=== PATIENT | male | born 1975 | race Caucasian/White ===

== ENCOUNTER 2021-09-16 20:25 | Inpatient (IN) | payer OTHER, SELFPAY ==
[2021-09-16 21:54] LABS: #Monocytes 0.4 10x3/uL (0.0-1.1); #Neutrophils 4.5 10x3/uL (1.5-8.4); %Basophils 0.3 % (0.0-2.0); %Eosinophils 0.3 % (0.0-6.0); %Lymphocytes 15.5 % (18.0-47.0); %Monocytes 6.8 % (0.0-10.0); %Neutrophils 76.9 % (40.0-75.0); Hemoglobin 14.6 g/dL (13.5-17.5); Mean Corpuscular HGB CONC 33.6 g/dL (32.0-36.0); Mean Corpuscular Hemoglobin 30.2 pg (27.0-33.0); Mean Corpuscular Volume 89.9 fl (81.2-95.1); Mean Platelet Volume 9.4 fl (7.4-10.4); Platelet Count 212 10x3/uL (150-450); RBC Distribution Width 13.7 % (11.5-14.5); Red Blood Cell (RBC) Count 4.84 10x6/uL (4.32-5.72); White Blood Cell (WBC) Count 5.9 10x3/uL (3.5-10.5)
[2021-09-16 21:55] LABS: ALT (SGPT) 48 U/L (8-55); AST (SGOT) 33 U/L (5-34); Albumin 4.3 g/dL (3.5-5.0); Alkaline Phosphatase 67 U/L (40-110); Anion Gap 17 mmol/L (10-20); BUN (Urea Nitrogen) 11 mg/dL (8.9-20.6); Bilirubin, Total 0.3 mg/dL (0.2-1.2); Calc. Creatinine Clearance 0 mL/min (70-130); Calcium 8.9 mg/dL (7.8-10.44); Carbon Dioxide 23 mmol/L (22-29); Chloride 102 mmol/L (98-107); Globulin 3.3 g/dL (2.4-3.5); Glucose 89 mg/dL (70-105); Potassium 3.8 mmol/L (3.5-5.1); Protein, Total 7.6 g/dL (6.0-8.3); Sodium 138 mmol/L (136-145)
[2021-09-16 22:29] LABS: SARS-CoV-2 NAA Rapid Test DETECTED (NotDetected)
[2021-09-16] MEDS ORDERED: Acetaminophen 500 MG TAB ONE (22:51)
[2021-09-16] MEDS ORDERED: Ketorolac Tromethamine 30 MG/ML VIAL ONE (22:51)
[2021-09-17 00:11] LABS: CRP (Inflammatory) 4.09 mg/dL (= or < 0.5); Magnesium 1.8 mg/dL (1.6-2.6)
[2021-09-17 00:33] LABS: Troponin I Less than 0.010 ng/mL (< 0.028)
[2021-09-17] MEDS ORDERED: Dexamethasone 10 MG/ML VIAL ONE (02:18)
[2021-09-17] MEDS ORDERED: Zinc Sulfate 220 MG CAP PO SCH (03:30)
[2021-09-17] MEDS ORDERED: Dexamethasone 4 mg/ml Vial SLOW IVP SCH (03:30)
[2021-09-17] MEDS: Sodium Chloride 0.9% 1,000 ML IV SCH ×2 (03:30→22:00)
[2021-09-17] MEDS ORDERED: Ascorbic Acid 500 mg Chewable Tablet PO SCH (03:30)
[2021-09-17] MEDS ORDERED: Cholecalciferol 1,000 UNITS (25 MCG) TAB PO SCH (03:30)
[2021-09-17 03:34] VITALS: BMI 29.0
[2021-09-17] MEDS: Aspirin 81 mg Enteric Coated Tablet PO SCH ×3 (03:52→08:42)
[2021-09-17] MEDS ORDERED: Zolpidem Tartrate 5 MG TAB PO SCH (04:00)
[2021-09-17 05:01] LABS: #Monocytes 0.3 10x3/uL (0.0-1.1); #Neutrophils 5.6 10x3/uL (1.5-8.4); %Basophils 0.1 % (0.0-2.0); %Eosinophils 0.1 % (0.0-6.0); %Monocytes 3.7 % (0.0-10.0); %Neutrophils 81.8 % (40.0-75.0); Hemoglobin 14.6 g/dL (13.5-17.5); Mean Corpuscular Hemoglobin 29.7 pg (27.0-33.0); Mean Platelet Volume 9.5 fl (7.4-10.4); Platelet Count 206 10x3/uL (150-450); RBC Distribution Width 13.5 % (11.5-14.5); Red Blood Cell (RBC) Count 4.92 10x6/uL (4.32-5.72); White Blood Cell (WBC) Count 6.8 10x3/uL (3.5-10.5)
[2021-09-17 05:03] LABS: Anion Gap 16 mmol/L (10-20); BUN (Urea Nitrogen) 9 mg/dL (8.9-20.6); Calc. Creatinine Clearance 116 mL/min (70-130); Calcium 8.4 mg/dL (7.8-10.44); Carbon Dioxide 20 mmol/L (22-29); Chloride 106 mmol/L (98-107); Glucose 118 mg/dL (70-105); Potassium 4.1 mmol/L (3.5-5.1); Sodium 138 mmol/L (136-145)
[2021-09-17 05:12] LABS: Troponin I Less than 0.010 ng/mL (< 0.028)
[2021-09-17] MEDS: Lisinopril 20 MG TAB PO SCH (08:42)
[2021-09-17] MEDS: Labetalol 100 MG TAB PO SCH ×2 (08:42→20:33)
[2021-09-17] MEDS: Dexamethasone 4 mg/ml Vial SLOW IVP SCH (08:42)
[2021-09-17] MEDS: Amlodipine 10 MG TAB PO SCH (08:42)
[2021-09-17] MEDS: Enoxaparin Sodium 40 MG/0.4 ML SYRINGE SC SCH (08:45)
[2021-09-17] MEDS ORDERED: Aspirin 81 mg Enteric Coated Tablet PO SCH (09:00)
[2021-09-17] MEDS ORDERED: Lactated Ringer's 1,000 ML IV SCH ×2 (13:45→16:30)
[2021-09-17] MEDS: Acetaminophen 325 MG TAB PO PRN ×2 (15:24→20:45)
[2021-09-17] MEDS ORDERED: Diazepam 5 MG TAB PO SCH (16:45)
[2021-09-17] MEDS ORDERED: Communication Order-Pharmacy FS PRN (18:05)
[2021-09-17] MEDS ORDERED: VANCOMYCIN 1.75 GM/350 ML BAG 1.75 GM in Premix Bag 1 BAG IVPB SCH (19:15)
[2021-09-17 20:13] LABS: Lactic Acid 2.7 mmol/L (0.5-2.2)
[2021-09-17 20:23] LABS: Troponin I Less than 0.010 ng/mL (< 0.028)
[2021-09-17] MEDS: Ascorbic Acid 500 mg Chewable Tablet PO SCH (20:31)
[2021-09-17] MEDS: Zinc Sulfate 220 MG CAP PO SCH (20:31)
[2021-09-17] MEDS: Cholecalciferol 1,000 UNITS (25 MCG) TAB PO SCH (20:32)
[2021-09-17] MEDS ORDERED: ALPRAZolam 1 MG TAB PO SCH (20:45)
[2021-09-17] MEDS ORDERED: Vancomycin 1 GM in Premix Bag 1 BAG IVPB SCH (21:00)
[2021-09-17] MEDS ORDERED: REMDESIVIR 200 MG in Sodium Chloride 0.9% 250 ML 210 ML IV SCH (21:00)
[2021-09-17] MEDS: Cefepime 2 GM in Sodium Chloride 0.9% 100 ML IVPB SCH (22:30)
[2021-09-17 23:33] LABS: Troponin I Less than 0.010 ng/mL (< 0.028)
[2021-09-18] MEDS: Acetaminophen 325 MG TAB PO PRN ×3 (00:10→12:01)
[2021-09-18 00:26] LABS: Actual Bicarbonate (HCO3a) 21.9 mEq/L (22-28); Base Excess (BEa) -0.7 mEq/L (-2.0 to +3.0); CO2 Tension 30.6 mmHg (35.0-45.0); Calcium, Ionized (arterial) 1.14 mmol/L (1.12-1.30); Carboxyhemoglobin (COHb) 0.1 gm% (0.0-3.0); Hemoglobin (Hb) 13.9 g/dL (14.0-18.0); O2 Tension (PaO2), arterial 58.9 mmHg (80.0-100.0); Potassium - ABG Lab 3.7 mmol/L (3.70-5.30); Puncture Site RRA; pH, Arterial 7.47 (7.35-7.45)
[2021-09-18] MEDS ORDERED: Melatonin 3 MG TAB PO SCH (03:30)
[2021-09-18 03:45] LABS: #Monocytes 0.3 10x3/uL (0.0-1.1); #Neutrophils 8.9 10x3/uL (1.5-8.4); %Lymphocytes 9.5 % (18.0-47.0); %Monocytes 2.6 % (0.0-10.0); %Neutrophils 87.7 % (40.0-75.0); Hemoglobin 13.4 g/dL (13.5-17.5); Mean Corpuscular HGB CONC 33.4 g/dL (32.0-36.0); Mean Corpuscular Hemoglobin 29.8 pg (27.0-33.0); Mean Corpuscular Volume 89.3 fl (81.2-95.1); Mean Platelet Volume 9.3 fl (7.4-10.4); Platelet Count 200 10x3/uL (150-450); RBC Distribution Width 13.3 % (11.5-14.5); Red Blood Cell (RBC) Count 4.49 10x6/uL (4.32-5.72); White Blood Cell (WBC) Count 10.2 10x3/uL (3.5-10.5)
[2021-09-18 03:54] LABS: Anion Gap 14 mmol/L (10-20); BUN (Urea Nitrogen) 11 mg/dL (8.9-20.6); Calc. Creatinine Clearance 109 mL/min (70-130); Calcium 8.3 mg/dL (7.8-10.44); Carbon Dioxide 21 mmol/L (22-29); Chloride 101 mmol/L (98-107); Glucose 113 mg/dL (70-105); Potassium 3.5 mmol/L (3.5-5.1); Sodium 132 mmol/L (136-145)
[2021-09-18 04:02] LABS: Troponin I Less than 0.010 ng/mL (< 0.028)
[2021-09-18] MEDS ORDERED: VANCOMYCIN 1.25 GM/250 ML BAG 1.25 GM in Premix Bag 1 BAG IVPB SCH (07:15)
[2021-09-18] MEDS: Cefepime 2 GM in Sodium Chloride 0.9% 100 ML IVPB SCH ×2 (08:57→21:30)
[2021-09-18] MEDS: Lisinopril 20 MG TAB PO SCH (08:57)
[2021-09-18] MEDS: Amlodipine 10 MG TAB PO SCH (08:57)
[2021-09-18] MEDS: Aspirin 81 mg Enteric Coated Tablet PO SCH (08:57)
[2021-09-18] MEDS: Labetalol 100 MG TAB PO SCH ×2 (08:58→21:28)
[2021-09-18] MEDS: Dexamethasone 4 mg/ml Vial SLOW IVP SCH (08:58)
[2021-09-18] MEDS: Enoxaparin Sodium 40 MG/0.4 ML SYRINGE SC SCH (08:58)
[2021-09-18] MEDS: VANCOMYCIN 1.25 GM/250 ML BAG 1.25 GM in Premix Bag 1 BAG IVPB SCH ×2 (09:28→21:31)
[2021-09-18] MEDS: Sodium Chloride 0.9% 1,000 ML IV SCH ×2 (10:30→18:08)
[2021-09-18] MEDS ORDERED: ALPRAZolam 0.5 MG TAB PO PRN (17:36)
[2021-09-18] MEDS ORDERED: REMDESIVIR 100 MG in Sodium Chloride 0.9% 250 ML 230 ML IV SCH (20:00)
[2021-09-18] MEDS: Cholecalciferol 1,000 UNITS (25 MCG) TAB PO SCH (21:28)
[2021-09-18] MEDS: Zinc Sulfate 220 MG CAP PO SCH (21:28)
[2021-09-18] MEDS: Ascorbic Acid 500 mg Chewable Tablet PO SCH (21:29)
[2021-09-19 06:35] LABS: #Monocytes 0.3 10x3/uL (0.0-1.1); %Basophils 0.1 % (0.0-2.0); %Lymphocytes 13.5 % (18.0-47.0); %Monocytes 2.5 % (0.0-10.0); %Neutrophils 83.5 % (40.0-75.0); Hemoglobin 13.7 g/dL (13.5-17.5); Mean Corpuscular HGB CONC 33.7 g/dL (32.0-36.0); Mean Corpuscular Hemoglobin 29.8 pg (27.0-33.0); Mean Corpuscular Volume 88.5 fl (81.2-95.1); Mean Platelet Volume 9.8 fl (7.4-10.4); Platelet Count 229 10x3/uL (150-450); RBC Distribution Width 13.4 % (11.5-14.5); White Blood Cell (WBC) Count 10.8 10x3/uL (3.5-10.5)
[2021-09-19 06:41] LABS: Anion Gap 14 mmol/L (10-20); BUN (Urea Nitrogen) 13 mg/dL (8.9-20.6); Calc. Creatinine Clearance 127 mL/min (70-130); Calcium 8.4 mg/dL (7.8-10.44); Carbon Dioxide 21 mmol/L (22-29); Chloride 105 mmol/L (98-107); Glucose 107 mg/dL (70-105); Potassium 3.9 mmol/L (3.5-5.1); Sodium 136 mmol/L (136-145)
[2021-09-19] MEDS: Enoxaparin Sodium 40 MG/0.4 ML SYRINGE SC SCH (07:31)
[2021-09-19] MEDS: Dexamethasone 4 mg/ml Vial SLOW IVP SCH (07:31)
[2021-09-19] MEDS: Cefepime 2 GM in Sodium Chloride 0.9% 100 ML IVPB SCH (07:32)
[2021-09-19] MEDS: Aspirin 81 mg Enteric Coated Tablet PO SCH (07:33)
[2021-09-19] MEDS: Labetalol 100 MG TAB PO SCH (07:33)
[2021-09-19] MEDS: Lisinopril 20 MG TAB PO SCH (07:33)
[2021-09-19] MEDS: Amlodipine 10 MG TAB PO SCH (07:33)
[2021-09-19] MEDS: VANCOMYCIN 1.25 GM/250 ML BAG 1.25 GM in Premix Bag 1 BAG IVPB SCH ×2 (07:34→09:06)
[2021-09-19 08:55] LABS: Vancomycin, Trough 8.2 ug/mL
[2021-09-19 12:17] VITALS: BP 130/71; TEMP 98.3
[2021-09-19] MEDS: Sodium Chloride 0.9% 1,000 ML IV SCH (12:25)
[2021-09-19] MEDS ORDERED: Lactated Ringer's 1,000 ML IV SCH (14:45)
[2021-09-19] MEDS ORDERED: VANCOMYCIN 1.25 GM/250 ML BAG 1.25 GM in Premix Bag 1 BAG IVPB SCH (17:00)
== END 2021-09-19 18:25 | disposition home or self-care (01) | DRG 177 ==
LOC: CSHERS 20:25 → CSHTELE 09-17 03:14 → OBSVTOIN 09-18 09:10
PROVIDERS: ADMIT Family Medicine; ATTEND Hospitalist
PROC: XW033E5 Introduction of Remdesivir Anti-infective into Peripheral Vein, Percutaneous Approach, New Technology Group 5 (ICD-10-PCS; principal; 2021-09-18)
PROC: 8E0ZXY6 Isolation (ICD-10-PCS; 2021-09-18)
DX: U07.1 COVID-19 (principal); J12.82 Pneumonia due to coronavirus disease 2019; J96.01 Acute respiratory failure with hypoxia; I10 Essential (primary) hypertension; E86.0 Dehydration; F41.9 Anxiety disorder, unspecified; R00.0 Tachycardia, unspecified; K21.9 Gastro-esophageal reflux disease without esophagitis; I73.00 Raynaud's syndrome without gangrene; Z86.711 Personal history of pulmonary embolism
CPT/HCPCS: 36415; 36600; 71045; 71275; 80048; 80053; 80202; 82805; 83605; 83735; 84145; 84439; 84443; 84484; 85025; 86140; 87040; 93005; 93010; 93306; 94760; 96372; 96374; 96375; 96376; G0378; J0248; J0692; J1100; J1650; J1885; J3370; J3490; J7050; J7120; U0002